=== PATIENT | male | born 2000 | race Two or more races ===

== ENCOUNTER 2019-10-11 21:39 | Emergency (ER) | payer MEDICAID ==
[~2019-10-11] VITALS: Ht 170.2 cm; Wt 72.6 kg
[2019-10-11 22:19] VITALS: BP 122/81
== END 2019-10-11 23:58 | disposition home or self-care (01) ==
LOC: ER 21:41
DX: S02.2XXA Fracture of nasal bones, initial encounter for closed fracture (principal); W03.XXXA Other fall on same level due to collision with another person, initial encounter; Y93.67 Activity, basketball; Y92.89 Other specified places as the place of occurrence of the external cause; Y99.8 Other external cause status
CPT/HCPCS: 70486